=== PATIENT | female | born 1980 | race Caucasian/White ===

== ENCOUNTER 2018-11-03 20:08 | Emergency (ER) | payer MEDICAID ==
[~2018-11-03] VITALS: Ht 162.6 cm; Wt 65.8 kg
--- NOTE | 2018-11-03 20:15 | NUR ---
PT BIBSELF COMPLAINING OF HEADACHE X2 DAYS. PT ALSO COMPLAINING OF LOWER ABDOMINAL PAIN WITH NAUSEA. PT DENIES SOB, CHEST PAIN, DYSURIA. PT AAOX4. RESPIRATIONS EVEN AND UNLABORED. SKIN WARM AND INTACT. NO ACUTE DISTRESS NOTED AT THIS TIME. PT AMBULATORY TO ER BED. WILL CONTINUE TO MONITOR
--- NOTE | 2018-11-03 20:45 | NUR ---
MD AT BEDSIDE FOR EVALUATION
[2018-11-03] MEDS ORDERED: METOCLOPRAMIDE HCL 10 MG/2 ML VIAL IV ONE (21:00)
[2018-11-03] MEDS ORDERED: IV NS 0.9% 1,000 ML BAG IV ONE (21:00)
[2018-11-03 21:04] LABS: BASOPHILS % (AUTO) 0.6 % (0.0-2.0); EOSINOPHILS % (AUTO) 0.5 % (0.0-6.0); HEMATOCRIT 28 % (33-45); LYMPHOCYTES # (AUTO) 1.5 /CMM (0.8-4.8); LYMPHOCYTES % (AUTO) 21.1 % (20.0-44.0); MEAN CORPUSCULAR HGB CONC 32 g/dl (31.0-36.0); MEAN CORPUSCULAR VOLUME 73 fL (82-100); MONOCYTES # (AUTO) 0.5 /CMM (0.1-1.30); MONOCYTES % (AUTO) 7.9 % (2.0-12.0); NEUTROPHILS # (AUTO) 4.8 /CMM (1.8-8.9); NEUTROPHILS % (AUTO) 69.9 % (43.0-81.0); PLATELET COUNT (AUTO) 385 /CMM (150-450); RED BLOOD CELL COUNT(AUTO) 3.86 MIL/uL (4.0-5.2); WHITE BLOOD COUNT (AUTO) 6.9 K/uL (4.3-11.0)
[2018-11-03 21:06] LABS: APPEARANCE,URINE Slightly Cloudy (CLEAR); BILIRUBIN,URINE Negative (NEGATIVE); BLOOD, URINE Moderate Ery/uL (NEGATIVE); COLOR,URINE Other (YELLOW); KETONES,URINE Negative (NEGATIVE); LEUKOCYTE ESTERASE ,URINE Large (NEGATIVE); NITRITE, URINE Negative (NEGATIVE); PH,URINE 8.5 (5.0-8.0); PROTEIN,URINE 30 mg/dl (NEGATIVE); UGLUCOSE Negative (NEGATIVE)
--- NOTE | 2018-11-03 21:08 | NUR ---
NOTIFIED MD OF MORPHINE SHORTAGE, UNABLE TO ADMINISTER PRESCRIBED MEDICATION. ADMINSITERED TORADOL PER MD ORDER, WILL CONTINUE TO MONITOR.
[2018-11-03 21:12] LABS: CALCIUM, SERUM 8.7 mg/dL (8.5-10.1); CREATININE 0.6 mg/dL (0.6-1.3); POTASSIUM 3.7 mmol/L (3.5-5.1)
[2018-11-03] MEDS ORDERED: METOCLOPRAMIDE HCL 10 MG/2 ML VIAL ONE (21:13)
[2018-11-03 21:19] LABS: ALBUMIN 3.5 g/dL (3.4-5.0); BILIRUBIN,DIRECT 0.1 mg/dL (0.0-0.2); BILIRUBIN,TOTAL 0.5 mg/dL (0.2-1.0)
[2018-11-03 21:25] LABS: BACTERIA,URINE Moderate /HPF (None Seen); SQUAMOUS EPITHELIAL CELL,UR Moderate /HPF (None Seen); WBC,URINE 21-50 /HPF (0-3)
[2018-11-03] MEDS ORDERED: CEFTRIAXONE 1 G in IV D5W 50 ML IV ONE (21:30)
[2018-11-03] MEDS ORDERED: KETOROLAC TROMETHAMINE INJ 30 MG/ML VIAL IV ONE (21:30)
[2018-11-03] MEDS ORDERED: MORPHINE SULFATE INJ 2 MG/ML DISP.SYRIN IV ONE (21:30)
[2018-11-03] MEDS ORDERED: KETOROLAC TROMETHAMINE INJ 30 MG/ML VIAL ONE (22:06)
[2018-11-03] MEDS ORDERED: CEFTRIAXONE 1GM BAG (ER ONLY) 50 ML IV ONE (22:06)
--- NOTE | 2018-11-03 22:47 | NUR ---
Patient discharged to home in stable condition. Written and verbal after care instructions given. Patient verbalizes understanding of instruction. IV removed. Catheter intact and site benign. Pressure and 4x4 applied to site. No bleeding noted. Pt ambulatory with a steady gait
[2018-11-03 22:51] VITALS: BP 105/89
== END 2018-11-03 22:51 | disposition home or self-care (01) ==
LOC: ER 20:10
DX: R51 Headache (principal); N39.0 Urinary tract infection, site not specified; G89.29 Other chronic pain; R10.32 Left lower quadrant pain; R11.2 Nausea with vomiting, unspecified; M79.7 Fibromyalgia
CPT/HCPCS: 36415; 76856; 80048; 80076; 81001; 83690; 84702; 85025; 85730; 87077; 87086; 87186; 96361; 96365; 96375; 99284; A4606; J0696 ×2; J1885; J2765; J7030; J7060; Z7610; 81000-TC

== ENCOUNTER 2020-10-13 06:15 | Emergency (ER) | payer MEDICAID ==
[~2020-10-13] VITALS: Ht 157.5 cm; Wt 65.8 kg
[2020-10-13 07:00] VITALS: BP 154/90
--- NOTE | 2020-10-13 07:05 | NUR ---
PT BIBSELF C/O COUGH, BODYACHE, SOB, NAUSEA, VOMITTING X1 WEEK. DENIES RECENT COVID TESTING OR EXPOSURE TO COVID. PT AAOX4. RESPIRATIONS EVEN AND UNLABORED. O2 SAT 100% ROOM AIR. AFEBRILE ON ARRIVAL. NO ACUTE DISTRESS NOTED AT THIS TIME.
--- NOTE | 2020-10-13 08:30 | NUR ---
Patient discharged to home in stable condition. Written and verbal after care instructions given. Patient verbalizes understanding of instruction.
== END 2020-10-13 08:35 | disposition home or self-care (01) ==
LOC: ER 06:17
DX: U07.1 COVID-19 (principal); M79.7 Fibromyalgia; R51.9 Headache, unspecified
CPT/HCPCS: 71045; 99284; C9803; U0003